=== PATIENT | male | born 1970 | race Caucasian/White ===

== ENCOUNTER → 2021-01-03 01:40 | Outpatient (CLI) | payer BC, SELFPAY ==
[2021-01-03 23:34] LABS: SARS-CoV-2 RNA PCR Negative
== END ==
PROVIDERS: PCP Family Medicine; Visit Provider Internal Medicine Gastroenterology
DX: Z01.812 Encounter for preprocedural laboratory examination (principal); Z20.822 Contact with and (suspected) exposure to COVID-19
CPT/HCPCS: C9803; U0003; U0005

== ENCOUNTER 2021-01-07 00:54 | Day surgery (SDC) | payer BC, SELFPAY ==
[2020-12-24 10:19] VITALS: BMI 23.6
[2021-01-07 07:25] VITALS: BP 135/94; PULSE 70; RESP 16; TEMP 36.3; O2SAT 100; BMI 23.2
[2021-01-07] MEDS: LACTATED RINGERS 1,000 ML 150 ML IV CONT (07:38)
--- NOTE | 2021-01-07 08:12 | WPDANESEPPF ---
Anes - Initial Pre Proc Eval Procedure: Operation Date: 01/07/21 08:30 Proposed Procedures p Screening Colonoscopy - Sujit Soto MD Date/Time: 01/07/21 08:12 Surgeon: Sujit Soto MD Pre Op Diagnosis: Neoplasm Screening Patient Data Age: 50 Gender: M Height: 1.85 m Weight: 79.8 kg Last Vital Signs Temp 36.3 C L 01/07/21 07:25 Pulse 70 01/07/21 07:25 Resp 16 01/07/21 07:25 BP 135/94 H 01/07/21 07:25 Pulse Ox 100 01/07/21 07:25 Allergies Allergy/AdvReac Type Severity Reaction Status Date / Time No Known Allergies Allergy Mild Unverified 01/07/21 07:24 Home Medications Medication Instructions Recorded Confirmed Type sodium,potassium,mag sulfates 17.5 See Rx Instructions PO .COMPLEX 12/16/20 Rx gram-3.13 gram-1.6 gram oral soln #354 ml fenofibrate micronized 134 mg PO QNOON 12/24/20 12/24/20 History chlorhexidine gluconate 4 % 1 applic TOPICAL ONCE #237 ml 12/30/20 Rx topical liquid Patient hx anesthesia problems: none Family hx anesthesia problems: none PMFSH Past Medical History Medical History (Updated 01/07/21 @ 08:17 by Alec Dolan MD) Degenerative joint disease (DJD) of hip HLD (hyperlipidemia) IFG (impaired fasting glucose) Pure hyperglyceridemia Weight gain Surgical History Surgical History History of ear surgery Family History Family History (Updated 12/25/20 @ 07:45 by Shelby Batista RT(R)) Other High cholesterol Social History Social History Smoking status: Never smoker Second hand tobacco smoke exposure: No Alcohol intake: never Drinks per week: 0 Substance use: never Substance use type: does not use Living arrangements: with family Gender identity (if verbalized by the patient): Male Spiritual care concerns: No Anes - Eval Final PreProcedure Day of Procedure 01/07/21 08:12 Patient weight: normal Heart: regular rate and rhythm Lungs: clear to auscultation and normal air movement Airway: Mallampati scale class II Neurological: alert and oriented Last oral intake: >/= 8 hours ASA classification: II Emergent: no Anesthetic plan: proceed Anesthesia type and monitoring: general GIVS Informed Consent: The patient's anesthetic plan and its attendant risks and benefits were discussed with the patient/family/POA. Questions were solicited and answers provided to the satisfaction of the patient/family/POA.
[2021-01-07] MEDS: ONDANSETRON INJ 4 MG/2 ML VIAL IV PUSH (08:30)
--- NOTE | 2021-01-07 08:33 | PM.HPGS ---
History of Present Illness History of Present Illness Consent: Risks, benefits, and alternatives have been discussed and questions answered. Patient agrees to proceed with procedure. Chief complaint: Neoplasm Screening Narrative: Guanako Curry is a 50 year old male here for screening colonoscopy, last one 2005 because blood in stools Review of Systems Constitutional: Constitutional: Denies headache(s) and Denies weakness Eyes: Eyes: Denies blurry vision ENT: Reports Normal hearing present, Denies headache(s) and Denies neck pain Cardiovascular: Cardiovascular: Denies chest pain and Denies dyspnea Respiratory: Respiratory: Denies dyspnea Gastrointestinal: Gastrointestinal: Reports no additional gastrointestinal complaints Genitourinary: Genitourinary: Denies dysuria Musculoskeletal: Musculoskeletal: Denies neck pain Integumentary/Breasts: Skin/Breast: Denies dry skin Neurologic: Reports Normal hearing present, Denies headache(s) and Denies weakness Psychiatric: Psychiatric: Denies anxiety Endocrine: Endocrine: Denies change in body appearance Hematologic/Lymphatic: Hematologic/Lymphatic: Denies easy bleeding Allergic/Immunologic: Allergic/Immunologic: Denies urticaria PMF Past Medical History Medical History (Updated 01/07/21 @ 08:34 by Sujit Soto MD) Colon cancer screening Degenerative joint disease (DJD) of hip HLD (hyperlipidemia) IFG (impaired fasting glucose) Pure hyperglyceridemia Weight gain Surgical History Surgical History History of ear surgery Family History Family History (Updated 12/25/20 @ 07:45 by Shelby Batista, RT(R)) Other High cholesterol Social History Social History Smoking status: Never smoker Second hand tobacco smoke exposure: No Alcohol intake: never Drinks per week: 0 Substance use: never Substance use type: does not use Living arrangements: with family Gender identity (if verbalized by the patient): Male Spiritual care concerns: No Meds Home Medications and Allergies Home Medications Medication Instructions Recorded Confirmed Type sodium,potassium,mag sulfates 17.5 See Rx Instructions PO .COMPLEX 12/16/20 Rx gram-3.13 gram-1.6 gram oral soln #354 ml fenofibrate micronized 134 mg PO QNOON 12/24/20 12/24/20 History chlorhexidine gluconate 4 % 1 applic TOPICAL ONCE #237 ml 12/30/20 Rx topical liquid Allergies Allergy/AdvReac Type Severity Reaction Status Date / Time No Known Allergies Allergy Mild Unverified 01/07/21 07:24 Vital Signs Vital Signs - 24 hr 01/07/21 07:25 Temperature 97.4 F L Pulse Rate 70 Respiratory Rate 16 Blood Pressure 135/94 H Pulse Oximetry 100 Exam Const: General: comfortable and no acute distress HENMT: General nose exam: Normal nares present Eyes: General: appearance normal, both eyes and all related structures Neck: Neck: no JVD Resp: Auscultation: clear to auscultation bilaterally Cardio: Rate: regular rate Rhythm: regular rhythm GI: Inspection: non-distended GI Palp: Yes Soft to palpation Skin: General skin exam: normal color Neuro: General: gait normal Speech: normal speech Extrem: General: normal to inspection Psych: Mental Status: mental status grossly normal Assessment and Plan Assessment and plan (1) Colon cancer screening: Code(s): Z12.11 - Encounter for screening for malignant neoplasm of colon Status: Acute Assessment and Plan: proceed with colonoscopy
[2021-01-07 09:01] VITALS: BP 108/70; PULSE 89; RESP 22; O2SAT 94
[2021-01-07 09:10] VITALS: BP 107/74; PULSE 81; RESP 23; O2SAT 94
[2021-01-07 09:21] VITALS: BP 113/80; PULSE 78; RESP 21; O2SAT 96
== END 2021-01-07 09:33 | disposition home or self-care (01) ==
PROVIDERS: PCP Family Medicine; Visit Provider Internal Medicine Gastroenterology
PROC: 0DJD8ZZ Inspection of Lower Intestinal Tract, Via Natural or Artificial Opening Endoscopic (ICD-10-PCS; CPT 45378; principal; 2021-01-07 08:30)
DX: Z12.11 Encounter for screening for malignant neoplasm of colon (principal); D12.5 Benign neoplasm of sigmoid colon; K64.8 Other hemorrhoids; E78.5 Hyperlipidemia, unspecified; E78.1 Pure hyperglyceridemia
CPT/HCPCS: 45385; 88305; C9803; J2405; J2704; J7120; U0003; U0005

== ENCOUNTER 2021-02-16 13:47 | Outpatient (CLI) | payer BC, SELFPAY ==
--- NOTE | 2021-02-16 14:37 | ECG_ITS ---
Measurements Intervals Pierce Rate: 58 P: 5 CT: 159 QRS: 23 QRSD: 110 T: 23 QT: 423 QTc: 417 Interpretive Statements SINUS BRADYCARDIA VOLTAGE CRITERIA FOR LVH BORDERLINE ECG Electronically Signed On 02-16-2021 15:13:04 CDT by Ernie Oliver D.O.
[2021-02-16 15:26] LABS: Basophils Percent Auto 0.5 % (0.2-1.2); Eosinophils Absolute Auto 0.1 K/mm3 (0-0.3); Eosinophils Percent Auto 1.1 % (0-4.4); Hematocrit 39.8 % (42.0-52.0); Hemoglobin 13.4 g/dL (14.0-18.0); Immature Granulocyte Absolute 0.07 K/mm3 (0.00-0.031); Immature Granulocyte Percent A 1.1 % (0-0.5); Lymphocytes Absolute Auto 1.76 K/mm3 (0.9-3.2); Lymphocytes Percent Auto 28.9 % (18.3-44.2); Mean Corpuscular HGB Conc 33.7 g/dl (32-36); Mean Corpuscular Hemoglobin 29.6 pg (26-34); Mean Corpuscular Volume 87.9 fl (80-100); Mean Platelet Volume 9.7 fl (7.4-10.4); Monocytes Absolute Auto 0.5 K/mm3 (0.1-0.6); Monocytes Percent Auto 8.5 % (2.6-8.5); Neutrophils Absolute Auto 3.7 K/mm3 (1.3-6.7); Neutrophils Percent Auto 59.9 % (45.5-73.1); Platelet Count Result 348 k/mm3 (150-375); Red Blood Count 4.53 M/mm3 (4.6-6.20); Red Cell Distribution Width 13.2 % (11.5-14.5); White Blood Count 6.1 K/mm3 (4.5-10.0)
[2021-02-16 15:29] LABS: Albumin Level 4.7 g/dL (3.5-5.1); Anion Gap 8 mmol/L (8-16); Blood Urea Nitrogen 10 mg/dL (9-20); Calcium 9.5 mg/dL (8.4-10.2); Carbon Dioxide 31 mmol/L (22-30); Chloride 104 mmol/L (98-107); Estimated Glomerular Filt Rate > 60; Glucose 97 mg/dL (75-110); Potassium 3.8 mmol/L (3.4-5.0); Sodium 143 mmol/L (137-145)
[2021-02-16 15:38] LABS: Add Urine Microscopic? NO; Appearance Urine Clear (Clear); Bilirubin Urine Negative (Negative); Blood Urine Negative (Negative); Color Urine Yellow (Yellow); Glucose Urine UA Negative (Negative); Ketones Urine Negative (Negative); Leukocyte Esterase Ur Negative LEU/UL (Negative); Nitrate Urine Negative (Negative); Protein Urine Negative (Negative); Specific Grav Ur 1.014 (1.001-1.035); Urobilinogen Urine Negative mg/dL (<2.0)
[2021-02-16 15:42] LABS: INR 0.9; Partial Thromboplastin Time 25.3 SECONDS (22.3-36.8); Prothrombin Time 12.8 Seconds (11.1-14.7)
[2021-02-16 15:53] LABS: Hemoglobin A1C 5.5 % (<5.7)
[2021-02-16 16:04] LABS: Urine Cotinine NEGATIVE
== END 2021-02-16 13:48 | disposition home or self-care (01) ==
PROVIDERS: PCP Family Medicine; Visit Provider Orthopaedic Surgery
DX: Z01.818 Encounter for other preprocedural examination (principal); M16.11 Unilateral primary osteoarthritis, right hip; R00.1 Bradycardia, unspecified
CPT/HCPCS: 80048; 80307; 81003; 82040; 83036; 85025; 85610; 85730; 86850; 86900; 86901; 87081; 93005

== ENCOUNTER → 2021-02-21 01:03 | Outpatient (CLI) | payer BC, SELFPAY ==
[2021-02-21 19:43] LABS: SARS-CoV-2 RNA PCR Negative
== END ==
PROVIDERS: PCP Family Medicine; Visit Provider Orthopaedic Surgery
DX: Z01.812 Encounter for preprocedural laboratory examination (principal); Z20.822 Contact with and (suspected) exposure to COVID-19
CPT/HCPCS: C9803; U0003; U0005

== ENCOUNTER 2021-02-26 19:19 | Observation (INO) | payer BC, SELFPAY ==
[2021-02-16 13:54] VITALS: BMI 23.8
[2021-02-16 14:35] VITALS: BP 132/84; PULSE 71; RESP 16; TEMP 36.9; O2SAT 99
--- NOTE | 2021-02-24 13:25 | P.PNAN_ITS ---
Anes - Initial Pre Proc Eval Procedure: Operation Date: 02/25/21 07:30 Proposed Procedures p Right Total Hip Arthroplasty - Caesar Boyd MD Date/Time: 02/24/21 13:25 Surgeon: Caesar Boyd MD Pre Op Diagnosis: Right Hip DJD Patient Data Age: 50 Gender: M Height: 1.83 m Weight: 79.6 kg Last Vital Signs Temp 36.9 C 02/16/21 14:35 Pulse 71 02/16/21 14:35 Resp 16 02/16/21 14:35 BP 132/84 02/16/21 14:35 Pulse Ox 99 02/16/21 14:35 Allergies Allergy/AdvReac Type Severity Reaction Status Date / Time No Known Allergies Allergy Mild Verified 02/16/21 13:55 Home Medications Medication Instructions Recorded Confirmed Type fenofibrate micronized 134 mg PO QPM 12/24/20 02/25/21 History acetaminophen [Arthritis Pain 1,300 mg PO Q8H PRN 02/16/21 02/25/21 History Relief (acetam)] famotidine [Acid Stenographic Court Reporter 20 mg PO HS 02/16/21 02/25/21 History (famotidine)] ibuprofen 800 mg PO TID PRN 02/16/21 02/25/21 History Patient hx anesthesia problems: none Family hx anesthesia problems: none PMFSH Past Medical History Medical History Colon cancer screening Degenerative joint disease (DJD) of hip HLD (hyperlipidemia) IFG (impaired fasting glucose) Pure hyperglyceridemia Weight gain Surgical History Surgical History History of ear surgery Family History Family History Other High cholesterol Social History Social History Smoking status: Never smoker Second hand tobacco smoke exposure: No Additional smoking assessment comments: DENIES ANY FORM OF TOBACCO USE Alcohol intake: never Drinks per week: 0 Substance use: never Substance use type: does not use Living arrangements: with family Gender identity (if verbalized by the patient): Male Spiritual care concerns: No Anes - Eval Final PreProcedure Day of Procedure 02/24/21 13:25 Patient weight: overweight Heart: regular rate and rhythm Lungs: clear to auscultation and normal air movement Airway: Mallampati scale class II Neurological: alert and oriented Last oral intake: >/= 8 hours ASA classification: II Emergent: no Anesthetic plan: proceed Anesthesia type and monitoring: general LMA and ETT Informed Consent: The patient's anesthetic plan and its attendant risks and benefits were discussed with the patient/family/POA. Questions were solicited and answers provided to the satisfaction of the patient/family/POA.
[2021-02-25] VITALS (13 sets, daily range): BP systolic 99–136; BP diastolic 61–87; PULSE 56–86; RESP 13–20; TEMP 36.3–36.6; O2SAT 94–100; BMI 24.0
[2021-02-25] MEDS: ACETAMINOPHEN 500 MG TABLET 1000 MG PO (06:55)
[2021-02-25] MEDS: TRANEXAMIC ACID 1,000MG/ISO100 1,000 MG/100 ML BAG 200 MG IVPB (06:57)
[2021-02-25] MEDS: LACTATED RINGERS 1,000 ML 30 ML IV CONT ×2 (06:58→11:07)
--- NOTE | 2021-02-25 07:50 | SUR.PREOP ---
0745; NOTIFIED PT AND SPOUSE THAT DR FISCHER WILL BE 30 MINUTES LATE
--- NOTE | 2021-02-25 07:53 | SUR.PREOP ---
OFFERED TO TAKE PT TO RESTROOM, HE REFUSED. STATES HE URINATED PRIOR TO ARRIVAL
--- NOTE | 2021-02-25 08:16 | WPDHPUPDATE1 ---
History and Physical Update Update Date/Time: 02/25/21 08:16 History and Physical has been reviewed, including an updated exam of the patient. There are NO changes in the patient's condition. Risks, benefits, and alternatives have been discussed and questions answered. Patient agrees to proceed with procedure.
[2021-02-25] MEDS: ceFAZolin 2 GM/D5W 50 ML 2 GM/50 ML BAG IVPB ×3 (08:28→23:50)
--- NOTE | 2021-02-25 11:09 | PM.PROC ---
Procedure Note - Detailed Date of procedure: 02/25/21 Pre-op diagnosis: Right Hip DJD R HIP DJD Post-op diagnosis: same Procedure performed: R LISS Description of procedure: THE PATIENT WAS TAKEN TO THE OPERATING ROOM IN STABLE CONDITION AND WAS PLACED IN THE LATERAL DECUBITUS AND THE RIGHT LOWER EXTREMITY WAS PREPPED AND DRAPED IN THE STERILE FASHION. INCISION WAS MADE IN THE POSTERIOR LATERAL SIDE OF THE HIP, DOWN TO THE FASCIA LAYER. THE FASCIA WAS INCISED. THE HIP WAS EXPOSED. THE SHORT EXTERNAL ROTATORS WERE EXPOSED. THE SCIATIC NERVE WAS IDENTIFIED. THERE WAS A HIGH BIFURCATION OF THE NERVE. INCISION WAS MADE THROUGH THE SORT EXTERNAL ROTATORS AND THE CAPSULE OF THE HIP JOINT. THE HIP WAS DISLOCATED. AN OSTEOTOMY WAS MADE TO THE FEMORAL NECK ABOUT 1 CM PROXIMAL TO THE LESSER TROCHANTER. THE ACETABULUM WAS EXPOSED. THERE WAS SEVERE DJD SEEN. BEGINNING WITH A 44 REAMER THE ACETABULUM WAS REAMED TO 55 MM. A 55 MM TRIAL WAS PLACED IN 35 DEG OF ABDUCTION AND ANTEVERSION WAS IN ALIGNMENT WITH THE TRANS ACETABULAR LIGAMENT. THE FIT WAS EXCELLENT. THE TRIAL WAS REMOVED. A 56 MM BIOMET G7 COMPONENT WAS THEN TAPPED IN TO PLACE IN 35 DEG OF ABDUCTION AND ANTEVERSION IN ALIGNMENT WITH THE TRANSVERSE ACETABULAR LIGAMENT. THE FIT WAS EXCELLENT. THE ACETABULAR LINER WAS PLACED AND CHECKED FOR STABILITY. NEXT THE FEMUR WAS PREPARED WITH INITIAL CANAL FINDER THEN SEQUENTIAL BROACHING WITH A TAPERLOC HIP SYSTEM, UNTIL A 8 BROACH FIT WELL IN 15 OF ANTEVERSION. A +0 HIGH OFFSET NECK WITH 36 MM HEAD TRIAL WAS PLACED. THE KIRSTY TEST WAS EXCELLENT AND THE STABILITY IN FLEXION AND ROTATION WAS EXCELLENT. LEG LENGTHS WERE GROSSLY EQUAL. TRIALS WERE REMOVED. A BIOMET TAPERLOC 8 STEM WAS PLACED WITH A HIGH OFFSET NECK THE FIT WAS EXCELLENT IN 15 DEG OF ANTEVERSION. A +0 CERAMIC 36 MM FEMORAL HEAD WAS PLACED. THE HIP WAS TRIALED AND THE STABILITY WAS EXCELLENT WERE THE LEG LENGTHS AND THE SCHUK TEST. THE WOUND WAS IRRIGATED WITH STERILE BETADINE AND WATER FOR 3 MIN. THEN WASHED AGAIN. THE CAPSULE AND THE EXTERNAL ROTATORS WERE APPROXIMATED WITH NUMBER 1 VICRYL. THE FASCIA WITH No 2 QUIL AND THE SUB CUTANEOUS LAYER WITH 2-0 ABSORBABLE SUTURE WITH A RUNNING 3-0 SUBCUTICULAR LAYER WELL. DERMABOND WAS PLACED AND STERILE DRESSING WAS APPLIED. PATIENT WAS PLACED BACK ON TO THE SUPINE POSITION AND WAS EXTUBATED. Anesthesia: GETA Surgeon: Caesar Boyd MD Estimated blood loss (mL): 400 Drains: No Complications: No immediate complications Condition: stable Disposition: PACU
[2021-02-25] MEDS: HYDROmorphone HCL INJ (*CRX) 1 MG/ML SYR 0.25 MG IV PUSH ×4 (11:32→11:50)
--- NOTE | 2021-02-25 11:33 | SUR.PHASEI ---
1133 - dr. ko at bedside assessing pt
--- NOTE | 2021-02-25 12:30 | ADMGEN ---
This patient, Guanako Curry, was admitted to Medical Room 240-01. Patient/family oriented to hospital policies and general routines including ID bracelet, bed and alarms, visiting hours, pain management, procedures, bathroom and other care routines, personal items, smoking policy, room service/diet, and visiting hours. Information on how to activate the Rapid Response Team has been discussed. Patient/Family are encouraged to report perceived risks to care and to ask questions if they do not understand what they are told or what they should do.
[2021-02-25] MEDS: MORPHINE SULFATE (*CRX) 4 MG/ML INJ 3 MG IV PUSH ×2 (12:40→22:10)
[2021-02-25] MEDS: KETOROLAC 15 MG/ML VIAL (*BKC) IV PUSH ×3 (12:43→23:49)
[2021-02-25] MEDS: SODIUM CHLORIDE 0.9% IV 1,000 ML 125 ML IV CONT ×2 (12:48→21:11)
[2021-02-25 12:50] LABS: Hematocrit 33.4 % (42.0-52.0); Hemoglobin 11.5 g/dL (14.0-18.0)
[2021-02-25] MEDS: ONDANSETRON INJ 4 MG/2 ML VIAL IV PUSH ×2 (14:30→21:06)
[2021-02-25] MEDS: diazePAM (*CRX) 5 MG TABLET PO (15:16)
[2021-02-25] MEDS: FENOFIBRATE NANOCRYSTALLIZED 145 MG TABLET PO (17:15)
[2021-02-25] MEDS: DOCUSATE SODIUM 100 MG CAPSULE PO (17:20)
[2021-02-25] MEDS: FAMOTIDINE 20 MG TABLET PO (20:39)
[2021-02-25] MEDS: HYDROcodone/acetaminophen (*CRX) 7.5-325 MG TABLET 1 TAB PO (20:43)
--- NOTE | ~2021-02-26 | XR_ITS ---
EXAMINATION: XR hip RT 1V DATE: 02/25/2021 11:20 INDICATION: Postoperative evaluation following right total hip arthroplasty TECHNIQUE: Anteroposterior view of the right hip were obtained. COMPARISON: Hip radiographs dated 12/24/2020 FINDINGS: Interval placement of a right total hip arthroplasty which appears well seated in near anatomic align ment on the single provided frontal projection. SPECT subcutaneous gas in the postoperative bed. No fractures identified. IMPRESSION: 1. Right total hip arthroplasty, negative for postoperative purposes. Reviewed, dictated and finalized at location A.
[2021-02-26 01:36] VITALS: BP 107/59; PULSE 75; RESP 16; TEMP 37.1; O2SAT 98
[2021-02-26] MEDS: KETOROLAC 15 MG/ML VIAL (*BKC) IV PUSH ×2 (05:34→11:52)
[2021-02-26 05:35] LABS: Basophils Percent Auto 0.2 % (0.2-1.2); Hematocrit 28.8 % (42.0-52.0); Hemoglobin 9.6 g/dL (14.0-18.0); Immature Granulocyte Absolute 0.06 K/mm3 (0.00-0.031); Immature Granulocyte Percent A 0.6 % (0-0.5); Lymphocytes Absolute Auto 1.19 K/mm3 (0.9-3.2); Lymphocytes Percent Auto 12.2 % (18.3-44.2); Mean Corpuscular HGB Conc 33.3 g/dl (32-36); Mean Corpuscular Hemoglobin 29.5 pg (26-34); Mean Corpuscular Volume 88.6 fl (80-100); Mean Platelet Volume 9.8 fl (7.4-10.4); Monocytes Percent Auto 10.3 % (2.6-8.5); Neutrophils Absolute Auto 7.5 K/mm3 (1.3-6.7); Neutrophils Percent Auto 76.7 % (45.5-73.1); Platelet Count Result 279 k/mm3 (150-375); Red Blood Count 3.25 M/mm3 (4.6-6.20); Red Cell Distribution Width 13.1 % (11.5-14.5); White Blood Count 9.7 K/mm3 (4.5-10.0)
[2021-02-26 05:58] LABS: Anion Gap 5 mmol/L (8-16); Blood Urea Nitrogen 9 mg/dL (9-20); Calcium 7.8 mg/dL (8.4-10.2); Carbon Dioxide 26 mmol/L (22-30); Chloride 105 mmol/L (98-107); Estimated CRCL calculation 106 ml/min; Estimated Glomerular Filt Rate > 60; Glucose 124 mg/dL (75-110); Potassium 3.4 mmol/L (3.4-5.0); Sodium 136 mmol/L (137-145)
[2021-02-26 06:07] VITALS: BP 105/56; PULSE 69; RESP 16; TEMP 37; O2SAT 98
[2021-02-26] MEDS: SODIUM CHLORIDE 0.9% IV 1,000 ML 125 ML IV CONT (06:43)
--- NOTE | 2021-02-26 08:06 | P.PNAN_ITS ---
Anes - Prog Note Post-Op Date/Time: 02/26/21 08:06 Cardiovascular status: normal Respiratory status: normal Airway patency: baseline Mental status: baseline Post-Op hydration status: normal Vital Signs: Last Vital Signs Temp 98.6 F 02/26/21 06:07 Pulse 69 02/26/21 06:07 Resp 16 02/26/21 06:07 BP 105/56 L 02/26/21 06:07 Pulse Ox 98 02/26/21 06:07 Pain Score (VAS): 11/16 I/O: Intake & Output 02/25/21 02/26/21 02/26/21 23:59 07:59 15:59 Intake Total 1100 1250 Output Total 600 Balance 1100 650 Laboratory Tests 02/26/21 05:08 02/26/21 05:08 02/25/21 02/26/21 02/26/21 12:42 05:08 05:08 WBC 9.7 RBC 3.25 L Hgb 11.5 L 9.6 L Hct 33.4 L 28.8 L MCV 88.6 MCH 29.5 MCHC 33.3 RDW 13.1 Plt Count 279 MPV 9.8 Immature Gran % (Auto) 0.6 H Neut % (Auto) 76.7 H Lymph % (Auto) 12.2 L [place] % (Auto) 10.3 H Eos % (Auto) 0.0 Baso % (Auto) 0.2 Lymph # (Auto) 1.19 [place] # (Auto) 1.0 H Eos # (Auto) 0.0 Baso # (Auto) 0.0 Abs Immat Gran (auto) 0.06 H Absolute Neuts (auto) 7.5 H Absolute Nucleated RBC 0.0 Nucleated RBC % 0.0 Sodium 136 L Potassium 3.4 Chloride 105 Carbon Dioxide 26 Anion Gap 5 L BUN 9 Creatinine 0.80 Estim Creat Clear Calc 106 Estimated GFR > 60 Glucose 124 H Calcium 7.8 L Post-procedural complaints: none Patient Feedback: Patient satisfied with anesthetic care.
[2021-02-26] MEDS: ASPIRIN 325 MG ENTERIC TABLET 650 MG PO (08:11)
[2021-02-26] MEDS: ceFAZolin 2 GM/D5W 50 ML 2 GM/50 ML BAG IVPB (08:11)
[2021-02-26] MEDS: DOCUSATE SODIUM 100 MG CAPSULE PO ×2 (08:12→17:05)
[2021-02-26] MEDS: ONDANSETRON INJ 4 MG/2 ML VIAL IV PUSH (08:15)
[2021-02-26] MEDS: HYDROcodone/acetaminophen (*CRX) 7.5-325 MG TABLET 1 TAB PO ×5 (08:19→23:51)
--- NOTE | 2021-02-26 08:43 | PM.PNORT ---
Progress Note: A&P Assessment and Plan (1) S/P total hip arthroplasty: Qualifiers: Laterality: right Qualified Code(s): Z96.641 - Presence of right artificial hip joint <KarenZE Mohr - Last Filed: 02/26/21 08:45> Code(s): Z96.649 - Presence of unspecified artificial hip joint <KarenZE Mejias - Last Filed: 02/26/21 08:45> Status: Acute <KarenZE Mohr - Last Filed: 02/26/21 08:45> Assessment and Plan: POD #1: RIGHT LISS Continue PT/OT. WBAT. WALKER. HIGH FALL RISK. Continue pain control. Ice Lateral Hip. DVT prophylaxis. SCDs. Incentive spirometry. Monitor dressing. Change prior to discharge. Anti-emetic prior to meals. Dispo: Home with Home Health pending progress with PT/OT. <ZE Godoy - Last Filed: 02/26/21 08:45> Subjective Subjective Date/Time Seen: 02/26/21 08:43 Patient with complaints of soreness today. Feels the pain medication is working well. He also c/o nausea with meals. Decreased appetite. Working with OT at time of exam. No acute concerns. <ZE Godoy - Last Filed: 02/26/21 08:45> Review of Systems Review of Systems: All systems reviewed & are unremarkable except as noted in HPI and below <ZE Godoy - Last Filed: 02/26/21 08:45> Constitutional: Constitutional: Denies chills, Denies fever(s), Denies headache(s), Denies lethargy and Reports weakness <ZE Godoy - Last Filed: 02/26/21 08:45> ENT: Denies headache(s) <ZE Godoy - Last Filed: 02/26/21 08:45> Cardiovascular: Cardiovascular: Denies chest pain, Denies diaphoresis, Denies lightheadedness, Denies palpitations, Denies dyspnea and Denies dyspnea on exertion <ZE Godoy - Last Filed: 02/26/21 08:45> Respiratory: Respiratory: Denies cough, Denies dyspnea and Denies dyspnea on exertion <Karen Sanchez [facility] - Last Filed: 02/26/21 08:45> Gastrointestinal: Gastrointestinal: Denies constipation, Denies diarrhea, Reports nausea (with meals ) and Denies vomiting <Karen Sanchez [facility] - Last Filed: 02/26/21 08:45> Genitourinary: Genitourinary: Denies dysuria, Reports urinary frequency and Denies urinary hesitancy <Karen Sanchez [facility] - Last Filed: 02/26/21 08:45> Musculoskeletal: Musculoskeletal: Reports joint swelling (Right Hip ) and Reports limited range of motion (Right Hip due to recent surgery ) <Karen Sanchez [facility] - Last Filed: 02/26/21 08:45> Neurologic: Denies headache(s) and Reports weakness <Karen Sanchez [facility] Last Filed: 02/26/21 08:45> Endocrine: Endocrine: Denies palpitations <Karen Sanchez [facility] Last Filed: 02/26/21 08:45> Exam Const: General: comfortable and no acute distress <Karen Sanchez [facility] Last Filed: 02/26/21 08:45> Resp: Effort & Inspection: normal respiratory effort <Karen Sanchez [facility] Last Filed: 02/26/21 08:45> Cardio: Rate: regular rate <Karen Sanchez [facility] Last Filed: 02/26/21 08:45> Rhythm: regular rhythm <Karen Sanchez [facility] - Last Filed: 02/26/21 08:45> GI: Inspection: non-distended <Karen Sanchez [facility] Last Filed: 02/26/21 08:45> Skin: General skin exam: normal color <Karen Sanchez [facility] Last Filed: 02/26/21 08:45> Other: Incision right hip c/d/i. Surrounding tissue without redness/warmth. Mild swelling consistent with recent surgery. No drainage. <Karen Sanchez, [facility] - Last Filed: 02/26/21 08:45> Neuro: Cognition (Neuro): normal cognition <SANDRA GodoyP - Last Filed: 02/26/21 08:45> Speech: normal speech <Karen Sanchez [facility] - Last Filed: 02/26/21 08:45> Other: Strength RLE decreased due to recent surgery. +ankle dorsiflexion/plantarflexion. NV intact. Moves toes. Sensaiton intact to light touch. <Karen Sanchez, [facility] - Last Filed: 02/26/21 08:45> Extrem: Right lower extremity: normal to inspection, normal capillary refill and hip/thigh Details: tenderness Location: of the hip (Thigh soft ) Location: laterally and anteriorly, swell
[2021-02-26 09:45] VITALS: BP 107/58; PULSE 67; RESP 16; TEMP 37.1; O2SAT 98
--- NOTE | 2021-02-26 10:52 | PCPTNOTE ---
Assisted SAFETY ANALYST w/ gait and on stairs. Agree w/ SAFETY ANALYST documentation. Updated POC.
[2021-02-26 14:00] VITALS: BP 113/53; PULSE 71; RESP 14; TEMP 37.1; O2SAT 98
[2021-02-26] MEDS: FENOFIBRATE NANOCRYSTALLIZED 145 MG TABLET PO (16:59)
[2021-02-26 18:00] VITALS: BP 120/64; PULSE 75; RESP 16; TEMP 38.2; O2SAT 99
[2021-02-26] MEDS: ACETAMINOPHEN 325 MG TABLET 1300 MG PO (18:35)
[2021-02-26] MEDS: FAMOTIDINE 20 MG TABLET PO (20:42)
[2021-02-26 22:00] VITALS: BP 117/68; PULSE 81; RESP 20; TEMP 36.7; O2SAT 98
[2021-02-27] MEDS: MORPHINE SULFATE (*CRX) 4 MG/ML INJ 3 MG IV PUSH (01:55)
[2021-02-27 02:00] VITALS: BP 120/65; PULSE 80; RESP 21; TEMP 36.4; O2SAT 100
[2021-02-27] MEDS: HYDROcodone/acetaminophen (*CRX) 7.5-325 MG TABLET 1 TAB PO ×4 (05:48→17:44)
[2021-02-27 06:00] VITALS: BP 128/67; PULSE 80; RESP 18; TEMP 36.7; O2SAT 96
[2021-02-27] MEDS: ONDANSETRON INJ 4 MG/2 ML VIAL IV PUSH (06:04)
[2021-02-27 08:00] VITALS: PULSE 88; RESP 14; O2SAT 100
[2021-02-27] MEDS: ASPIRIN 325 MG ENTERIC TABLET 650 MG PO (08:45)
[2021-02-27] MEDS: DOCUSATE SODIUM 100 MG CAPSULE PO ×2 (09:04→17:44)
[2021-02-27 09:35] VITALS: BP 102/65; PULSE 88; RESP 14; TEMP 36.9; O2SAT 100
--- NOTE | 2021-02-27 12:58 | PM.PNORT ---
Progress Note: A&P Additional Plan POD 2 DOING WELL. OK TO DC HOME F/U IN 3 WEEKS. Time Spent With Patient Time with patient: less than 15 minutes Subjective Subjective Date/Time Seen: 02/27/21 12:58 POD 2 DOING WELL. N O CALF PAIN Exam Const: General: comfortable and no acute distress Resp: Effort & Inspection: normal respiratory effort Cardio: Rate: regular rate Rhythm: regular rhythm GI: Inspection: non-distended Skin: General skin exam: normal color Other: Incision right hip c/d/i. Surrounding tissue without redness/warmth. Mild swelling consistent with recent surgery. No drainage. Neuro: Cognition (Neuro): normal cognition Speech: normal speech Other: Strength RLE decreased due to recent surgery. +ankle dorsiflexion/plantarflexion. NV intact. Moves toes. Sensaiton intact to light touch. Extrem: Right lower extremity: normal to inspection, normal capillary refill and hip/thigh Details: tenderness Location: of the hip (Thigh soft ) Location: laterally and anteriorly, swelling Location: at the hip, abnormal ROM (limited consistent with recent surgery ) and other (Incision c/d/i. ); no deformity and no unusual warmth Objective Data Vital Signs Vital Signs: Vital Signs - 24 hr 02/26/21 14:00 02/26/21 18:00 02/26/21 22:00 Temperature 37.1 C 38.2 C H 36.7 C Pulse Rate 71 75 81 Respiratory Rate 14 16 20 Blood Pressure 113/53 L 120/64 117/68 Pulse Oximetry 98 99 98 02/27/21 02:00 02/27/21 06:00 02/27/21 09:35 Temperature 36.4 C 36.7 C 36.9 C Pulse Rate 80 80 88 Respiratory Rate 21 H 18 14 Blood Pressure 120/65 128/67 102/65 Pulse Oximetry 100 96 100 Intake/Output Intake/Output: Intake & Output 02/24/21 02/25/21 02/26/21 02/27/21 23:59 23:59 23:59 23:59 Intake Total 1600 1790 990 Output Total 1750 500 Balance 1600 40 490 Meds/Results Medications: Active Medications Generic Name Dose Route Start Last Admin Trade Name Freq PRN Reason Stop Dose Admin Acetaminophen 1,300 mg 02/25/21 12:22 02/26/21 18:35 Acetaminophen 325 Mg Tablet PO 1,300 mg Q8H PRN Administration Mild Pain (1-3) Hydrocodone Bitart/Acetaminophen 1 tab 02/25/21 12:22 02/27/21 08:46 Hydrocodone/Acetaminophen (*Crx) 7.5-325 Mg Tablet PO 1 tab Q3H PRN Administration Pain Rated 4-6 Al Hydrox/Mg Hydrox/Simethicone 30 ml 02/25/21 12:22 Mag Hydrox/Al Hydrox/Simeth 30 Ml Udc PO Q6H PRN Indigestion Aspirin 650 mg 02/26/21 09:00 02/27/21 08:45 Aspirin 325 Mg Enteric Tablet PO 650 mg DAILY DYLAN Administration Diazepam 5 mg 02/25/21 12:22 02/25/21 15:16 Diazepam (*Crx) 5 Mg Tablet PO 5 mg Q6H PRN Administration Anxiety/Muscle Spasm Docusate Sodium 100 mg 02/25/21 17:00 02/27/21 09:04 Docusate Sodium 100 Mg Capsule PO 100 mg BID DYLAN Administration Famotidine 20 mg 02/25/21 21:00 02/26/21 20:42 Famotidine 20 Mg Tablet PO 20 mg HS DYLAN Administration Fenofibrate 145 mg 02/25/21 18:00 02/26/21 16:59 Fenofibrate Nanocrystallized 145 Mg Tablet PO 03/27/21 18:01 145 mg QPM DYLAN Administration Hydroxyzine HCl 50 mg 02/25/21 12:22 Hydroxyzine Hcl 25 Mg Tablet PO Q4H PRN Itching Magnesium Hydroxide 30 ml 02/25/21 12:22 Magnesium Hydroxide Susp 30 Ml Udc PO BID PRN Constipation Morphine Sulfate 3 mg 02/25/21 12:22 02/27/21 01:55 Morphine Sulfate (*Crx) 4 Mg/Ml Inj IV PUSH 3 mg Q3H PRN Administration Pain Rated 7-10 Naloxone HCl 0.1 mg 02/25/21 12:22 Naloxone Hcl 0.4 Mg/Ml Vial IV PUSH Q2M PRN Opiate Reversal Ondansetron HCl 4 mg 02/25/21 12:22 02/27/21 06:04 Ondansetron Inj 4 Mg/2 Ml Vial IV PUSH 4 mg Q4H PRN Administration Nausea And Vomiting Radiology Results: ITS Impressions Hip X-Ray 02/25/21 11:23 IMPRESSION: 1. Right total hip arthroplasty, negative for postoperative purposes. Quality VTE Prophylaxis VTE prop
--- NOTE | 2021-02-27 13:03 | PM.DS ---
DS: Admitting Diagnosis Admitting Diagnosis Admitting Diagnosis: RIGHT HIP DJD DS: Discharge Diagnosis Discharge Diagnosis (1) S/P total hip arthroplasty: Qualifiers: Laterality: right Qualified Code(s): Z96.641 - Presence of right artificial hip joint Code(s): Z96.649 - Presence of unspecified artificial hip joint Status: Acute (2) Degenerative joint disease (DJD) of hip: Qualifiers: Osteoarthritis type: primary Laterality: bilateral Qualified Code(s): M16.0 - Bilateral primary osteoarthritis of hip Code(s): M16.9 - Osteoarthritis of hip, unspecified Status: Acute DS: Summary Hospital Course Hospital Course: PATIENT UNDERWENT R LISS AND DID WELL DURING SURGERY. POSTOP HIS PAIN WAS WELL CONTROLLED. HE HAD A SLOW START WITH PT BUT THEN PROGRESSED WELL. HE WAS TAKING GOOD PO AND WAS WBAT. HE WOULD BE DISCHARGED TO HOME WITH HOME HEALTH Status at Discharge Functional status at discharge: uses cane/walker Overall status at discharge: patient is not back to baseline Time Spent with Patient Time attestation: Total time spent providing and/or coordinating discharge services: Time spent: Less than 30 minutes Discharge Plan Discharge Attending physician on discharge: Caesar Boyd Discharging Clinician: Caesar Boyd Patient Disposition: Home Health Service Activity: may shower, no driving and follow weight bearing status Diet: as tolerated Wound Care Instructions: keep dressing dry Discharge Instructions: Post Op Total Hip Replacement Instructions Dr. Caesar Boyd [phone] ?Your dressing will be changed prior to your discharge. You will be sent home with one additional dressing to be changed in 5 days by the home health RN. oIf your incision was closed with pratibha, they will be removed on the 14th day after surgery and steri-strips will be placed. oIf your incision was closed with dermabond, allow the dermabond to fall off naturally and do not disrupt incision healing. ?You may shower with your dressing but do not submerge in a bath tub. ?Do not drive or operate machinery until you are released by Dr. Boyd. ?Do not walk without a walker for any reason until you are released by Dr. Boyd. ?Continue to apply ice to the hip intermittently for additional pain relief. Protect your skin with a towel or pillow case. ?Continue to follow strict total hip replacement precautions. ?You follow up appointment is indicated in your discharge instructions. Your medications have been sent to your pharmacy. ?Please contact our office with any questions/concerns regarding your knee at [phone]. Per Care Coordination: Patient to have [facility] for prison and PT/OT evaluation/treatment. They can be reached at [phone]. Patient Instructions: Antibiotic Form, Safe Use of Anticoagulants (DC), Total Hip Replacement (DC) Stand Alone Forms: General Discharge Information Follow-up/Referrals: Caesar Boyd MD [Physician] - Keep Reg. Scheduled Appt. Discharge Medications: New aspirin 325 mg Tablet,Delayed Release (Dr/Ec) 650 mg PO DAILY 28 Days Qty: 56 RF: 0 hydrocodone-acetaminophen 7.5-325 mg Tablet 1 tablet PO Q4-6H PRN (Reason: Pain Rated 4-6) Qty: 56 RF: 0 docusate sodium 100 mg Capsule 100 mg PO BID 30 Days Qty: 60 RF: 0 Discontinued fenofibrate micronized 134 mg capsule 134 mg PO QPM RF: 0 ibuprofen 800 mg Tablet 800 mg PO TID PRN (Reason: Pain) RF: 0 acetaminophen [Arthritis Pain Relief (acetam)] 650 mg Tablet Extended Release 1,300 mg PO Q8H PRN (Reason: Pain) RF: 0 famotidine [Acid Geotechnical Engineering Technician (famotidine)] 20 mg Tablet 20 mg PO HS RF: 0 Date of admission: 02/26/21 19:19 Primary Care Provider: Patrice Mattson Admitting Provider: Caesar Boyd Attending physician on admission: Caesar Boyd Condition: Stable Quality VTE Prophylaxis VTE prophylaxis: mechanical
[2021-02-27 13:20] VITALS: BP 124/74; PULSE 70; RESP 14; TEMP 36.4; O2SAT 100
[2021-02-27] MEDS: FENOFIBRATE NANOCRYSTALLIZED 145 MG TABLET PO (17:44)
== END 2021-02-27 18:25 | disposition home health service (06) ==
LOC: ANHSURGERY 19:22 → ANH2MED 19:22
PROVIDERS: Admitting Provider Orthopaedic Surgery; PCP Family Medicine; Visit Provider Orthopaedic Surgery
PROC: (CPT 27130; principal; 2021-02-25 07:30)
DX: M16.11 Unilateral primary osteoarthritis, right hip (principal); G89.18 Other acute postprocedural pain; R11.0 Nausea; E78.5 Hyperlipidemia, unspecified; E78.1 Pure hyperglyceridemia
CPT/HCPCS: 27130; 36415; 73501; 80048; 80307; 81003; 82040; 83036; 85014; 85018; 85025; 85610; 85730; 86850; 86900; 86901; 87081; 93005; 97110; 97116; 97161; 97165; 97530; 97535; A9270; C1713; C1776; C9803; G0378; J0171; J0690; J1170; J1885; J2250; J2270; J2405; J2704; J2795; J3010; J7030; J7120; U0003; U0005

== ENCOUNTER 2021-08-28 10:08 | Outpatient (CLI) | payer BC, SELFPAY ==
--- NOTE | ~2021-08-28 | XR_ITS ---
EXAMINATION: XR lumbar spine 2-3V DATE: 08/28/2021 10:34 INDICATION: Mid low back pain TECHNIQUE: Anteroposterior and lateral views of the lumbar spine, and cone-down lateral view of the l umbosacral junction were obtained. COMPARISON: Lumbar spine MR dated 09/17/2011 and radiographs dated 08/30/2011 FINDINGS: Straightening of the normal lumbar lordosis. No spondylolisthesis. Unchanged chronic mild posterior v ertebral body height loss at L5 which may be developmental. There is been progressive vertebral body height loss which remains mild at L4-L5 which is increased to moderate at L5-S1. Mild lower lumbar fa cet osteoarthritis. Sacral arches are intact. Mild bilateral sacral osteoarthritis. Moderate to sever e left hip osteoarthritis. Partially visualized right total hip arthroplasty. IMPRESSION: 1. Interval progression of mild to moderate lower lumbar spondylosis. 2. Moderate to severe left hip osteoarthritis. Reviewed, dictated and finalized at location A.
== END 2021-08-28 10:09 | disposition home or self-care (01) ==
PROVIDERS: PCP Family Medicine; Visit Provider Nurse Practitioner Family
DX: M54.40 Lumbago with sciatica, unspecified side (principal); M17.12 Unilateral primary osteoarthritis, left knee; M47.817 Spondylosis without myelopathy or radiculopathy, lumbosacral region; M48.07 Spinal stenosis, lumbosacral region
CPT/HCPCS: 72100

== ENCOUNTER 2021-09-24 07:29 | Outpatient (CLI) | payer BC, SELFPAY ==
--- NOTE | ~2021-09-24 | MR_ITS ---
EXAMINATION: MR lumbar spine wo con DATE: 09/24/2021 08:30 INDICATION: Low back pain, unspecified. TECHNIQUE: Magnetic resonance imaging (MRI) of the lumbar spine was performed without intravenous con trast. Sequences included sagittal T2-weighted FSE, sagittal T2-weighted FS FSE, sagittal T1-weighted FSE, and axial T2-weighted FSE. COMPARISON: Lumbar spine MRI 09/17/2011 FINDINGS: There is 4 degrees levocurvature of lumbar spine. There is mild chronic height loss of L5 v ertebral body posteriorly. There is mildly decreased disc height at L4-L5 and severely decreased disc height at L5-S1 with endplate remodeling. The distal spinal cord signal intensity is normal. The con us medullaris is at T12-L1. The following disc levels are specifically discussed: L1-L2: The disc does not extend beyond the endplate margin. There is mild bilateral facet joint osteo arthritis. There is no neural foraminal stenosis. There is no central canal stenosis. L2-L3: There is a left foraminal protrusion. There is moderate bilateral facet joint osteoarthritis. There is mild left neural foraminal stenosis. There is no central canal stenosis. L3-L4: The disc does not extend beyond the endplate margin. There is mild bilateral facet joint osteo arthritis. There is no neural foraminal stenosis. There is no central canal stenosis. L4-L5: The disc is bulging and has an annular fissure. There is no facet joint osteoarthritis. There is mild right and moderate left neural foraminal stenosis. There is mild central canal stenosis. L5-S1: The disc is bulging and has an annular fissure. There is mild right and moderate left facet shelton int osteoarthritis. There is moderate bilateral neural foraminal stenosis. There is mild central chica l stenosis. IMPRESSION: 1. Severe lower lumbar spondylosis with interval resolution of the L5-S1 extrusion and interval decre ase in height of the L5-S1 disc. Reviewed, dictated and finalized at location A. RAM ATTENDANT IMPRESSION: 1. Severe lower lumbar spondylosis with interval resolution of the L5-S1 extrus ion and interval decrease in height of the L5-S1 disc.
== END 2021-09-24 07:30 | disposition home or self-care (01) ==
PROVIDERS: PCP Family Medicine; Visit Provider Nurse Practitioner Family
DX: M47.817 Spondylosis without myelopathy or radiculopathy, lumbosacral region (principal); M48.07 Spinal stenosis, lumbosacral region
CPT/HCPCS: 72148

== ENCOUNTER 2021-10-06 07:57 | Outpatient (CLI) | payer BC, SELFPAY ==
[2021-10-06 09:38] LABS: Add Urine Microscopic? NO; Appearance Urine Clear (Clear); Bilirubin Urine Negative (Negative); Blood Urine Negative (Negative); Color Urine Yellow (Yellow); Glucose Urine UA Negative (Negative); Ketones Urine Negative (Negative); Leukocyte Esterase Ur Negative LEU/UL (Negative); Nitrate Urine Negative (Negative); Protein Urine Negative (Negative); Specific Grav Ur 1.015 (1.001-1.035); Urobilinogen Urine Negative mg/dL (<2.0)
[2021-10-06 09:44] LABS: Urine Cotinine NEGATIVE
[2021-10-06 09:55] LABS: Prothrombin Time 12.6 Seconds (11.1-14.7)
[2021-10-06 09:56] LABS: Partial Thromboplastin Time 26.2 SECONDS (22.3-36.8)
== END 2021-10-06 07:58 | disposition home or self-care (01) ==
LOC: ANHSURGERY 08:00
PROVIDERS: PCP Family Medicine; Visit Provider Orthopaedic Surgery
DX: Z01.812 Encounter for preprocedural laboratory examination (principal); M16.12 Unilateral primary osteoarthritis, left hip; Z51.81 Encounter for therapeutic drug level monitoring; Z79.899 Other long term (current) drug therapy
CPT/HCPCS: 80307; 81003; 85610; 85730; 87081

== ENCOUNTER 2021-10-21 01:36 | Day surgery (SDC) | payer BC, SELFPAY ==
[2021-10-06 07:50] VITALS: BP 126/84; PULSE 71; RESP 16; TEMP 36.4; O2SAT 98; BMI 22.5
--- NOTE | 2021-10-06 08:32 | PC.NURSE ---
Addendum entered by Gretel Ford RN 10/06/21 08:56: CORRECTION SURGERY DATE IS 10/21/21. Original Note: Report to the Outpatient Waiting Room, entrance under the green pavilion located off [facility], at time ___6:00AM____ on date __10/06/21___. OR Time: ___7:30AM . - You and your visitor will be asked a series of questions to screen for COVID 19 for your protection. - A mask is required within the hospital. - Only one visitor is allowed at this time. Patient visitors will be guided where to wait when not with patient. Preoperative COVID Testing Requirements: No COVID Test needed if: (proof is required; if not received patient will have Rapid Test prior to entry) - Patient has received COVID Vaccine at least 14 days prior to procedure date or - Patient has positive COVID test result within last 90 days of surgery date. COVID Test needed if above criteria is not met If not COVID vaccinated a COVID test must be conducted within 72 hours of surgery and patient is asked to isolate self from time of testing until procedure. You will go to the [facility] for your COVID testing. The [facility] is located at the corner of [address] [facility]. You will only be called if COVID results are positive and your surgeon may reschedule your elective surgery date. Patients may have clear liquids (water, carbonated beverages, clear teas, apple juice) until 3 hours prior to surgery with a maximum of 20 ounces. - No food from midnight until time of surgery - Infants may have breast milk until 4 hours before surgery, formula 6 hours prior to surgery. - Children will be allowed to drink immediately following surgery. If applicable, please bring a bottle or sippy cup to assist with drinking. Juice, water, soda, and popsicles are readily available. For infants on formula, please bring formula the day of surgery. Pacifiers are allowed. Take the following medications with a SIP of water the morning of surgery: __NONE Medications to discontinue per physician HOLD IBUPROFEN PER DR FISCHER Date to take last dose Please no make-up, nail thai, hairspray, perfume, deodorant, or body powder the day of surgery. No jewelry (including any body piercings) or valuables the day of surgery, leave them at home. Please take a shower or bath the night before, or the morning of, surgery with an antibacterial soap. Wear comfortable, loose fitting clothing. Children are encouraged to wear pajamas. - Jewelry must be removed prior to entering the operating room. Rings and piercings that are not removed may be cut off. - The hospital will not accept responsibility for valuables. - Please leave all valuables, including medications, at home the day of surgery. If you are going home after surgery, a licensed jitney driver must drive you home. - NO public transportation without another adult. - We recommend that an adult stay with you for 24 hours following discharge. - We also recommend that you do not drive, make important decision, drink alcoholic beverages, or take any drugs that were not prescribed by your health care provider for at least 24 hours after your discharge time. For Pediatric surgeries, we recommend two adults accompany the child home (only one inside the building at this time). Follow any additional instructions given to you from your surgeon. Telephone instructions given to __PATIENT and asked if any additional questions and then verbalized understanding. Patient advised to call surgeon office or pre surgery nurse liaison [phone] if any additional questions.
[2021-10-21] VITALS (20 sets, daily range): BP systolic 103–134; BP diastolic 60–90; PULSE 51–75; RESP 9–21; TEMP 36.1–37.3; O2SAT 93–100
--- NOTE | ~2021-10-21 | XR_ITS ---
EXAMINATION: XR hip LT 1V DATE: 10/21/2021 10:33 INDICATION: Total left hip arthroplasty. Postop. TECHNIQUE: A single view of left hip was obtained. COMPARISON: Pelvis and left hip radiographs 09/24/2021 FINDINGS: There is a total left hip arthroplasty in near-anatomic alignment. Partially visualized is a total right hip arthroplasty. No fracture. There is gas in the soft tissues near the left hip, cons istent with recent surgery. IMPRESSION: 1. Total left hip arthroplasty in near-anatomic alignment. Reviewed, dictated and finalized at location A. LATION POWER UNIT TENDER
--- NOTE | 2021-10-21 06:58 | P.PNAN_ITS ---
Anes - Initial Pre Proc Eval Procedure: Operation Date: 10/21/21 07:30 Proposed Procedures p Left Total Hip Arthroplasty - Caesar Boyd MD Date/Time: 10/21/21 06:58 Surgeon: Caesar Boyd MD Pre Op Diagnosis: Left hip djd Patient Data Age: 51 Gender: M Height: 1.83 m Weight: 75.3 kg Last Vital Signs Temp 36.4 C 10/06/21 07:50 Pulse 71 10/06/21 07:50 Resp 16 10/06/21 07:50 BP 126/84 10/06/21 07:50 Pulse Ox 98 10/06/21 07:50 Allergies Allergy/AdvReac Type Severity Reaction Status Date / Time No Known Allergies Allergy Mild Verified 10/06/21 08:12 Home Medications Medication Instructions Recorded Confirmed Type ibuprofen 800 mg PO BID PRN 10/06/21 10/06/21 History omeprazole 20 mg PO DAILY PRN 10/06/21 10/06/21 History chlorhexidine gluconate 4 % 1 applic TOPICAL ONCE #3800 ml 10/16/21 Rx topical liquid Patient hx anesthesia problems: none Family hx anesthesia problems: none Results Review: All pre-operative results and documents have been reviewed as part of the pre-operative evaluation. [facility] Past Medical History Medical History Colon cancer screening Degenerative joint disease (DJD) of hip Degenerative joint disease (DJD) of hip HLD (hyperlipidemia) IFG (impaired fasting glucose) Pure hyperglyceridemia Weight gain Surgical History Surgical History History of ear surgery S/P total hip arthroplasty Family History Family History Other High cholesterol Social History Social History Second hand tobacco smoke exposure: No Alcohol intake: never Drinks per week: 0 Alcohol use details: occasional Substance use: never Substance use type: does not use Living arrangements: with family Additional living arrangements comments: AND CHILDREN Gender identity (if verbalized by the patient): Male Sexual Orientation (if Verbalized by the Patient): Straight or Heterosexual Spiritual care concerns: No Anes - Eval Final PreProcedure Day of Procedure 10/21/21 06:58 Patient weight: normal Heart: regular rate and rhythm Lungs: clear to auscultation Airway: Mallampati scale class II Neurological: alert and oriented Last oral intake: >/= 8 hours ASA classification: II Emergent: no Anesthetic plan: proceed Anesthesia type and monitoring: general ETT and standard monitoring Results Review: All pre-operative results and documents have been reviewed as part of the pre-operative evaluation. Informed Consent: The patient's anesthetic plan and its attendant risks and benefits were discussed with the patient/family/POA. Questions were solicited and answers provided to the satisfaction of the patient/family/POA.
[2021-10-21] MEDS: ACETAMINOPHEN 500 MG TABLET 1000 MG PO (07:00)
[2021-10-21] MEDS: LACTATED RINGERS 1,000 ML 30 ML IV CONT ×2 (07:05→10:20)
[2021-10-21] MEDS: TRANEXAMIC ACID 1,000MG/ISO100 1,000 MG/100 ML BAG 200 MG IVPB (07:12)
--- NOTE | 2021-10-21 07:19 | WPDHPUPDATE1 ---
History and Physical Update Update Date/Time: 10/21/21 07:19 History and Physical has been reviewed, including an updated exam of the patient. There are NO changes in the patient's condition. Risks, benefits, and alternatives have been discussed and questions answered. Patient agrees to proceed with procedure.
[2021-10-21] MEDS: ceFAZolin 2 GM/D5W 50 ML 2 GM/50 ML BAG IVPB ×3 (07:33→23:35)
[2021-10-21] MEDS: ceFAZolin SODIUM 1 GM VIAL 2 GM IV PUSH (08:34)
[2021-10-21] MEDS: TRANEXAMIC ACID 1,000 MG/10 ML AMPUL 1000 MG IV PUSH (09:47)
--- NOTE | 2021-10-21 10:30 | W.PM.PROC2 ---
Procedure Note - Detailed Date of Procedure 10/21/21 Pre-op Diagnosis Left hip djd Post-op Diagnosis same Procedure Performed L LISS Surgeon Caesar Boyd MD Anesthesia general Description of Procedure THE PATIENT WAS TAKEN TO THE OPERATING ROOM IN STABLE CONDITION AND WAS PLACED IN THE LATERAL DECUBITUS AND THE LEFT LOWER EXTREMITY WAS PREPPED AND DRAPED IN THE STERILE FASHION. INCISION WAS MADE IN THE POSTERIOR LATERAL SIDE OF THE HIP, DOWN TO THE FASCIA LAYER. THE FASCIA WAS INCISED. THE HIP WAS EXPOSED. THE SHORT EXTERNAL ROTATORS WERE EXPOSED. THE SCIATIC NERVE WAS IDENTIFIED. INCISION WAS MADE THROUGH THE SHORT EXTERNAL ROTATORS AND THE CAPSULE OF THE HIP JOINT. THE HIP WAS DISLOCATED. AN OSTEOTOMY WAS MADE TO THE FEMORAL NECK ABOUT 1 CM PROXIMAL TO THE LESSER TROCHANTER. THE ACETABULUM WAS EXPOSED. THERE WAS SEVERE DJD SEEN. BEGINNING WITH A 44 REAMER THE ACETABULUM WAS REAMED TO 55 MM. A 55 MM TRIAL WAS PLACED IN 35 DEG OF ABDUCTION AND ANTEVERSION WAS IN ALIGNMENT WITH THE TRANS ACETABULAR LIGAMENT. THE FIT WAS EXCELLENT. THE TRIAL WAS REMOVED. A 56 MM BIOMET G7 COMPONENT WAS THEN TAPPED IN TO PLACE IN 35 DEG OF ABDUCTION AND ANTEVERSION IN ALIGNMENT WITH THE TRANSVERSE ACETABULAR LIGAMENT. THE FIT WAS EXCELLENT. THE ACETABULAR LINER WAS PLACED AND CHECKED FOR STABILITY. NEXT THE FEMUR WAS PREPARED WITH INITIAL CANAL FINDER THEN SEQUENTIAL BROACHING WITH A TAPERLOC HIP SYSTEM, UNTIL A 10 BROACH FIT WELL IN 15 OF ANTEVERSION. A +3 HIGH OFFSET NECK WITH 36 MM HEAD TRIAL WAS PLACED. THE SHUCK TEST WAS EXCELLENT AND THE STABILITY IN FLEXION AND ROTATION WAS EXCELLENT. LEG LENGTHS WERE GROSSLY EQUAL. TRIALS WERE REMOVED. A BIOMET TAPERLOC 10 STEM WAS PLACED WITH A HIGH OFFSET NECK THE FIT WAS EXCELLENT IN 15 DEG OF ANTEVERSION. A +3 CERAMIC 36 MM FEMORAL CERAMIC HEAD WAS PLACED. THE HIP WAS TRIALED AND THE STABILITY WAS EXCELLENT WERE THE LEG LENGTHS AND THE SHUCK TEST. THE WOUND WAS IRRIGATED WITH STERILE BETADINE AND WATER FOR 3 MIN. THEN WASHED AGAIN. THE CAPSULE AND THE EXTERNAL ROTATORS WERE APPROXIMATED WITH NUMBER 1 VICRYL. THE FASCIA WITH No 2 QUIL AND THE SUB CUTANEOUS LAYER WITH 2-0 ABSORBABLE SUTURE WITH A RUNNING 3-0 SUBCUTICULAR LAYER WELL. DERMABOND WAS PLACED AND STERILE DRESSING WAS APPLIED. PATIENT WAS PLACED BACK ON TO THE SUPINE POSITION AND WAS EXTUBATED Estimated Blood Loss 100 Drains No Complications No immediate complications Condition stable Disposition PACU
--- NOTE | 2021-10-21 10:32 | SUR.PHASEI ---
1025 xrays of left hip done
[2021-10-21] MEDS: fentaNYL CITRATE INJ (*CRX) 100 MCG/2 ML VIAL 25 MCG IV PUSH ×4 (11:06→11:46)
[2021-10-21] MEDS: KETOROLAC 30 MG/ML VIAL (*BKC) IV PUSH (12:57)
[2021-10-21] MEDS: ONDANSETRON INJ 4 MG/2 ML VIAL IV PUSH ×2 (12:58→15:30)
[2021-10-21] MEDS: oxyCODONE HCL (*CRX) 5 MG TAB IR PO (15:10)
[2021-10-21] MEDS: SODIUM CHLORIDE 0.9% IV 1,000 ML 125 ML IV CONT (15:13)
[2021-10-21] MEDS: KETOROLAC 15 MG/ML VIAL (*BKC) IV PUSH (18:08)
[2021-10-21] MEDS: FAMOTIDINE 20 MG TABLET PO (22:03)
[2021-10-21] MEDS: SENNA/DOCUSATE SODIUM TABLET 2 TAB PO (22:03)
[2021-10-21] MEDS: HYDROcodone/acetaminophen (*CRX) 7.5-325 MG TABLET 1 TAB PO (22:40)
[2021-10-22] MEDS: SODIUM CHLORIDE 0.9% IV 1,000 ML 125 ML IV CONT (00:03)
[2021-10-22] MEDS: HYDROcodone/acetaminophen (*CRX) 7.5-325 MG TABLET 1 TAB PO ×3 (01:45→10:15)
[2021-10-22 03:18] VITALS: BP 104/50; PULSE 63; RESP 16; TEMP 36.8; O2SAT 100
[2021-10-22] MEDS: KETOROLAC 15 MG/ML VIAL (*BKC) IV PUSH ×3 (06:30→11:46)
[2021-10-22] MEDS: ceFAZolin 2 GM/D5W 50 ML 2 GM/50 ML BAG IVPB (06:59)
[2021-10-22 07:18] VITALS: BP 89/56; PULSE 63; RESP 14; TEMP 37.5; O2SAT 96
[2021-10-22 07:39] LABS: Basophils Percent Auto 0.2 % (0.2-1.2); Hematocrit 29.3 % (42.0-52.0); Hemoglobin 10.1 g/dL (14.0-18.0); Immature Granulocyte Absolute 0.09 K/mm3 (0.00-0.031); Immature Granulocyte Percent A 0.8 % (0-0.5); Lymphocytes Absolute Auto 1.76 K/mm3 (0.9-3.2); Mean Corpuscular HGB Conc 34.5 g/dl (32-36); Mean Corpuscular Hemoglobin 30.1 pg (26-34); Mean Corpuscular Volume 87.5 fl (80-100); Mean Platelet Volume 9.8 fl (7.4-10.4); Monocytes Absolute Auto 1.2 K/mm3 (0.1-0.6); Monocytes Percent Auto 10.5 % (2.6-8.5); Neutrophils Absolute Auto 8.7 K/mm3 (1.3-6.7); Neutrophils Percent Auto 73.5 % (45.5-73.1); Platelet Count Result 228 k/mm3 (150-375); Red Blood Count 3.35 M/mm3 (4.6-6.20); Red Cell Distribution Width 13.3 % (11.5-14.5); White Blood Count 11.8 K/mm3 (4.5-10.0)
[2021-10-22 07:46] LABS: Anion Gap 4 mmol/L (8-16); Blood Urea Nitrogen 8 mg/dL (9-20); Calcium 8.1 mg/dL (8.4-10.2); Carbon Dioxide 26 mmol/L (22-30); Chloride 106 mmol/L (98-107); Estimated CRCL calculation 114 ml/min; Estimated Glomerular Filt Rate > 60; Glucose 116 mg/dL (65-110); Potassium 3.5 mmol/L (3.4-5.0); Sodium 136 mmol/L (137-145)
--- NOTE | 2021-10-22 09:11 | PM.PNORT ---
Progress Note: A&P Assessment and Plan (1) S/P total hip arthroplasty: Qualifiers: Laterality: left Qualified Code(s): Z96.642 - Presence of left artificial hip joint Code(s): Z96.649 - Presence of unspecified artificial hip joint Status: Acute Assessment and Plan: POD #1: Left LISS Continue PT/OT. WBAT. Walker. Monitor dressing. Change prior to discharge. Send patient with one additional dressing. DVT prophylaxis. SCDs. Incentive Spirometry. Pain control. Ice lateral hip. Dispo: Home with Home Health pending progress with PT/OT today. Subjective Subjective Date/Time Seen: 10/22/21 09:11 Post Op day: 1 Interval history: POD #1: Left LISS Review of Systems Constitutional: Constitutional: Denies chills, Denies fatigue, Denies fever(s), Denies night sweats and Denies weakness Cardiovascular: Cardiovascular: Denies chest pain, Denies lightheadedness, Denies palpitations and Denies dyspnea Respiratory: Respiratory: Denies cough, Denies dyspnea and Denies wheezing Gastrointestinal: Gastrointestinal: Denies abdominal pain, Denies diarrhea, Denies nausea and Denies vomiting Musculoskeletal: Musculoskeletal: Reports arthralgias (left hip ), Reports joint swelling (left hip ) and Denies numbness Neurologic: Denies numbness and Denies weakness Endocrine: Endocrine: Denies fatigue and Denies palpitations Allergic/Immunologic: Allergic/Immunologic: Denies wheezing Exam Const: General: comfortable and no acute distress Resp: Effort & Inspection: normal respiratory effort Cardio: Rate: regular rate Rhythm: regular rhythm GI: Inspection: non-distended Skin: General skin exam: normal color Wounds: wounds noted (incision left hip C/D/I ) Extrem: Left lower extremity: hip/thigh Details: tenderness Location: of the hip Location: laterally and anteriorly, swelling (thigh soft ) Location: of the hip (lateral. ), abnormal ROM (limitations with internal/external rotation and flexion/extension due to recent surgical intervention ) and other (incision lateral hip c/d/i. ), knee Details: normal to inspection and normal ROM; no tenderness and no swelling, lower leg (Negative Malaika's Sign ) Details: no edema, ankle (+ankle dorsiflexion/plantarflexion ) Details: normal to inspection, no edema and normal ROM; no tenderness, no swelling and no warmth and foot Details: normal capillary refill, toes with normal ROM, vascular exam Details: dorsalis pedis pulse present and motor-sensory exam light-touch normal in all toes; no tenderness, no ecchymosis and no crepitus Psych: Mental Status: mental status grossly normal Affect: normal affect Objective Data Vital Signs Vital Signs: Vital Signs - 24 hr 10/21/21 10:20 10/21/21 10:35 10/21/21 10:50 Temperature 36.1 C L 36.1 C L 36.3 C L Pulse Rate 52 L 56 L 51 L Respiratory Rate 13 9 L 9 L Blood Pressure 103/64 125/73 121/82 Pulse Oximetry 100 100 100 10/21/21 11:05 10/21/21 11:20 10/21/21 11:35 Temperature Pulse Rate 53 L 63 65 Respiratory Rate 11 L 15 21 H Blood Pressure 115/90 133/81 128/73 Pulse Oximetry 96 96 100 10/21/21 11:50 10/21/21 12:05 10/21/21 12:19 Temperature Pulse Rate 62 75 60 Respiratory Rate 18 16 13 Blood Pressure 134/66 122/70 117/75 Pulse Oximetry 94 100 100 10/21/21 12:30 10/21/21 12:45 10/21/21 13:00 Temperature Pulse Rate 70 67 73 Respiratory Rate 11 L 17 17 Blood Pressure 121/85 121/83 122/60 Pulse Oximetry 100 100 100 10/21/21 13:15 10/21/21 13:30 10/21/21 13:45 Temperature Pulse Rate 69 63 69 Respiratory Rate 14 12 12 Blood Pressure 110/69 105/72 109/74 Pulse Oximetry 100 95 93 10/21/21 13:55 10/21/21 14:47 10/21/21 15:18 Temperature 36.3 C L 36.5 C Pulse Rate 73 72 67 Respiratory Rate 12 18 18 Blood Pressure 104/73 112/68 114/75 Pulse Oximetry 93 94 93 10/21/21 22:30 10/22/21 03:18 10/22/21 07:18 Temperature 37.3 C 36.8 C 37.5 C Pulse Rate 63 63 63 Respiratory Rat
--- NOTE | 2021-10-22 10:07 | P.PNAN_ITS ---
Anes - Prog Note Post-Op Date/Time: 10/22/21 10:07 Cardiovascular status: normal Respiratory status: normal Airway patency: baseline Mental status: baseline Post-Op hydration status: normal Vital Signs: Last Vital Signs Temp 37.5 C 10/22/21 07:18 Pulse 63 10/22/21 07:18 Resp 14 10/22/21 07:18 BP 89/56 L 10/22/21 07:18 Pulse Ox 96 10/22/21 07:18 Pain Score (VAS): 0 I/O: Intake & Output 10/21/21 10/22/21 10/22/21 23:59 07:59 15:59 Intake Total 1050 1050 Output Total 1100 Balance 1050 -50 Laboratory Tests 10/22/21 07:18 10/22/21 07:18 10/22/21 10/22/21 07:18 07:18 WBC 11.8 H RBC 3.35 L Hgb 10.1 L Hct 29.3 L MCV 87.5 MCH 30.1 MCHC 34.5 RDW 13.3 Plt Count 228 MPV 9.8 Immature Gran % (Auto) 0.8 H Neut % (Auto) 73.5 H Lymph % (Auto) 15.0 L [place] % (Auto) 10.5 H Eos % (Auto) 0.0 Baso % (Auto) 0.2 Lymph # (Auto) 1.76 [place] # (Auto) 1.2 H Eos # (Auto) 0.0 Baso # (Auto) 0.0 Abs Immat Gran (auto) 0.09 H Absolute Neuts (auto) 8.7 H Absolute Nucleated RBC 0.0 Nucleated RBC % 0.0 Sodium 136 L Potassium 3.5 Chloride 106 Carbon Dioxide 26 Anion Gap 4 L BUN 8 L Creatinine 0.70 Estim Creat Clear Calc 114 Estimated GFR > 60 Glucose 116 H Calcium 8.1 L Post-procedural complaints: none Patient Feedback: Patient satisfied with anesthetic care.
[2021-10-22] MEDS: polyethylene glycoL 3350 17 GM POWD.PACK PO (10:08)
[2021-10-22] MEDS: FAMOTIDINE 20 MG TABLET PO (10:08)
[2021-10-22] MEDS: ASPIRIN 325 MG ENTERIC TABLET 650 MG PO (10:15)
[2021-10-22] MEDS: SENNA/DOCUSATE SODIUM TABLET 2 TAB PO (10:16)
[2021-10-22 11:18] VITALS: BP 112/64; PULSE 70; RESP 14; TEMP 37.1; O2SAT 99
== END 2021-10-22 15:42 | disposition home health service (06) ==
LOC: ANHSURGERY 06:04 → ANHSUROVER 14:04
PROVIDERS: PCP Family Medicine; Visit Provider Orthopaedic Surgery
PROC: (CPT 27130; principal; 2021-10-21 07:30)
DX: M16.12 Unilateral primary osteoarthritis, left hip (principal); M61.00 Myositis ossificans traumatica, unspecified site
CPT/HCPCS: 27130; 36415; 73501; 80048; 80307; 81003; 85025; 85610; 85730; 86850; 86900; 86901; 87081; 97110; 97116; 97161; 97165; 97530; 97535; A9270; C1776; J0171; J0690; J1100; J1170; J1885; J2250; J2270; J2405; J2704; J2710; J2795; J3010; J7030; J7120

== ENCOUNTER 2022-08-30 17:11 | Outpatient (CLI) | payer BC, SELFPAY ==
[2022-09-04 09:46] LABS: HLA B27 Negative (Negative)
== END 2022-08-30 17:12 | disposition home or self-care (01) ==
LOC: ANHLAB 17:12
PROVIDERS: PCP Family Medicine; Visit Provider Orthopaedic Surgery
DX: M47.816 Spondylosis without myelopathy or radiculopathy, lumbar region (principal); M16.9 Osteoarthritis of hip, unspecified; M61.00 Myositis ossificans traumatica, unspecified site
CPT/HCPCS: 36415; 86812

== ENCOUNTER 2024-01-31 15:46 | Outpatient (CLI) | payer BC, SELFPAY ==
--- NOTE | ~2024-01-31 | XR_ITS ---
EXAMINATION: XR wrist LT w scaphoid DATE: 01/31/2024 16:05 INDICATION: Left hand pain TECHNIQUE: 1. Posteroanterior, ulnar deviation, oblique, and lateral views of the left wrist were obtained. 2. Dorsal palmar, oblique and lateral views of the left hand were obtained. COMPARISON: None. FINDINGS: Alignment of the left hand and wrist is normal. No acute fracture identified. Mild osteoarthritis at the first carpometacarpal joint. Small corticated ossicle near the tip the ulnar styloid process whi ch could represent a degenerative loose osteochondral body or heterotopic ossicle related to chronic soft tissue injury. Soft tissues are unremarkable. IMPRESSION: 1. Mild osteoarthritis at the first carpal metacarpal joint. No acute osseous abnormalities. Reviewed, dictated and finalized at location A. IMPRESSION: 1. Mild osteoarthritis at the first carpal metacarpal joint. No acute osseous a bnormalities.
== END 2024-01-31 15:47 ==
LOC: MICIMG 15:47
PROVIDERS: PCP Physician Assistant; Visit Provider Physician Assistant
DX: M19.042 Primary osteoarthritis, left hand (principal); M19.032 Primary osteoarthritis, left wrist
CPT/HCPCS: 73110; 73130